=== PATIENT | female | born 1985 | race Caucasian/White ===

== ENCOUNTER 2019-11-01 11:09 | Emergency (ER) | payer SELFPAY ==
[2019-11-01 11:18] VITALS: BP 214/149; PULSE 90; RESP 20; TEMP 36.7; O2SAT 94; BMI 49.1
--- NOTE | 2019-11-01 11:35 | XRR_ITS ---
PROCEDURE INFORMATION: Exam: XR Chest, 1 View Exam date and time: 11/01/2019 12:18 PM Age: 33 years old Clinical indication: Cough and shortness of breath; Additional info: Cough/congestion TECHNIQUE: Imaging protocol: XR of the chest Views: 1 view. COMPARISON: CR Chest 1 [place] [id number] 04/14/2019 12:06 AM FINDINGS: Lungs: Unremarkable. No consolidation. Pleural space: Unremarkable. No pleural effusion. No pneumothorax. Heart/Mediastinum: Unremarkable. No cardiomegaly. Bones/joints: Unremarkable. XR/XR chest 1V portable [id number] IMPRESSION: No acute findings.
[2019-11-01 12:10] LABS: Basophils # 0.1 10^3/uL (0.0-0.1); Basophils % 1.2 %; Eosinophils # 0.3 10^3/uL (0.0-0.8); Eosinophils % 4.1 %; Hematocrit 40.7 % (37.0-47.0); Hemoglobin 12.1 g/dL (11.5-15.3); Lymphocytes # 2.6 10^3/uL (0.8-4.8); Lymphocytes % 33.1 %; Mean Corpuscular HGB Conc 29.7 g/dL (30.0-36.0); Mean Corpuscular Hemoglobin 23.3 pg (28.0-34.0); Mean Corpuscular Volume 78.4 fL (81-99); Mean Platelet Volume 11.8 fL (7.4-10.4); Monocytes # 0.6 10^3/uL (0.2-0.9); Monocytes % 7.3 %; Neutrophils # 4.2 10^3/uL (1.8-7.7); Nucleated Red Blood Cells % 0 %; Platelet Count 283 10^3/cmm (130-400); Red Blood Count 5.19 10^6/uL (4.1-5.3); Red Cell Distribution Width 15.9 % (12.1-15.1); White Blood Count 7.8 10^3/uL (4.0-10.0)
[2019-11-01 12:23] LABS: HCG, Serum Qual Negative (Negative)
[2019-11-01 12:27] LABS: Alanine Aminotransferase 13 U/L (0-33); Albumin Level 3.8 g/dL (3.5-5.2); Alkaline Phosphatase 105 IU/L (35-105); Anion Gap 16.6 (5-19); Aspartate Amino Transferase 14 U/L (0-32); Blood Urea Nitrogen 8 mg/dL (6-20); Calcium 9.7 mg/dL (8.5-10.5); Carbon Dioxide 21 mmol/L (22-29); Chloride 104 mmol/L (98-107); Creatinine Clr Calc Pharmacy 149.2619; Glomerular Filtration Rate 72.1 mL/min (90-130); Glucose 112 mg/dL (74-109); Potassium 3.6 mmol/L (3.5-5.1); Sodium 138 mmol/L (136-145); Total Bilirubin 0.2 mg/dL (0.15-1.2); Total Protein 7.8 g/dL (6.6-8.7)
== END 2019-11-01 14:24 | disposition left against medical advice (07) ==
LOC: ER 11:54
PROVIDERS: Physician Assistant; Emergency Provider Physician Assistant
DX: Z53.21 Procedure and treatment not carried out due to patient leaving prior to being seen by health care provider (principal)
CPT/HCPCS: 36415; 71045; 80053; 84703; 85025; 99281; 99282

== ENCOUNTER 2021-03-03 00:41 | Emergency (ER) | payer SELFPAY ==
[2021-03-03 01:09] VITALS: BP 145/80; PULSE 88; RESP 17; TEMP 36.6; O2SAT 98; BMI 50.2
--- NOTE | 2021-03-03 02:11 | XRR_ITS ---
PROCEDURE INFORMATION: Exam: XR Chest Exam date and time: 03/03/2021 2:12 AM Age: 35 years old Clinical indication: Chest pressure; Patient HX: Chest pain; Additional info: Cp TECHNIQUE: Imaging protocol: XR of the chest. Views: 1 view. COMPARISON: CR XR chest 1V portable [id number] 11/01/2019 12:16 PM FINDINGS: Lungs: Unremarkable. No consolidation. Pleural spaces: Unremarkable. No pleural effusion. No pneumothorax. Heart/Mediastinum: Unremarkable. No cardiomegaly. Bones/joints: Unremarkable. XR/XR chest 1V portable [id number] IMPRESSION: No acute findings.
[2021-03-03 02:21] VITALS: BP 108/88; PULSE 82; RESP 20; O2SAT 99
[2021-03-03 02:22] LABS: Basophils # 0.1 10^3/uL (0.0-0.1); Eosinophils # 0.3 10^3/uL (0.0-0.8); Eosinophils % 2.2 %; Hematocrit 42.4 % (37.0-47.0); Hemoglobin 13.7 g/dL (11.5-15.3); Lymphocytes % 31.5 %; Mean Corpuscular HGB Conc 32.3 g/dL (30.0-36.0); Mean Corpuscular Hemoglobin 26.5 pg (28.0-34.0); Mean Platelet Volume 11.9 fL (7.4-10.4); Monocytes % 7.9 %; Neutrophils # 7.14 10^3/uL (1.8-7.7); Nucleated Red Blood Cells % 0 %; Platelet Count 315 10^3/cmm (130-400); Red Blood Count 5.17 10^6/uL (4.1-5.3); Red Cell Distribution Width 15.1 % (12.1-15.1); White Blood Count 12.5 10^3/uL (4.0-10.0)
[2021-03-03 02:30] VITALS: BP 202/123; PULSE 79; RESP 21; O2SAT 98
[2021-03-03 02:45] LABS: Troponin(5th) Baseline 6 ng/L (0-10)
[2021-03-03 02:49] LABS: D Dimer 0.83 ug/mIFEU (0-0.59)
[2021-03-03 02:52] LABS: Alanine Aminotransferase 25 U/L (0-33); Albumin Level 4.3 g/dL (3.5-5.2); Alkaline Phosphatase 105 IU/L (35-105); Anion Gap 16.6 (5-19); Aspartate Amino Transferase 16 U/L (0-32); Blood Urea Nitrogen 12 mg/dL (6-20); Calcium 8.9 mg/dL (8.5-10.5); Carbon Dioxide 28 mmol/L (22-29); Chloride 99 mmol/L (98-107); Creatine Phosphokinase 34 U/L (26-192); Glomerular Filtration Rate 95.2 mL/min (90-130); Glucose 85 mg/dL (65-115); NT Pro B Type Natriuretic Pept 34 pg/mL (0-125); Osmolality Calculated 289 mOsm/kg (285-295); Potassium 3.6 mmol/L (3.5-5.1); Sodium 140 mmol/L (136-145); Total Bilirubin 0.2 mg/dL (0.15-1.2); Total Protein 7.3 g/dL (6.6-8.7)
[2021-03-03 04:00] VITALS: PULSE 78; RESP 22; O2SAT 98
--- NOTE | 2021-03-03 04:11 | ECG_ITS ---
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
[2021-03-03 04:25] VITALS: BP 136/67; PULSE 81; RESP 18; O2SAT 98
--- NOTE | 2021-03-03 04:44 | W.ED.CHESTPA ---
HPI - Chest Pain General: Chief Complaint: Chest Pain Stated Complaint: CP Time Seen by Provider: 03/03/21 03:09 History of Present Illness: HPI narrative: 35-year-old female with chest discomfort onset yesterday at 6 or 6:30 in the morning. It is a sharp pain to the right side of her chest that radiates to her neck. No cough, no fever. No shortness of breath. No pain increase with deep breathing she said it is not reproducible by palpation. The pain is gone on exam. MD complaint: chest pain Pertinent past history: other Onset (ago): hour(s) Prior episodes: Yes Onset: during rest Pain location: right chest Pain radiation: neck Severity: moderate Quality: sharp Relieving factors: nothing Exacerbating factors: nothing Context: recent immobilization Associated symptoms: Reports nausea; Deny dyspnea, fever(s) or palpitations Treatment prior to arrival: aspirin and nitroglycerin Review of Systems Const: Denies: fever(s) Eyes: Denies: change in vision ENMT: Denies: odynophagia or sinus pain Card: Denies: palpitations Resp: Denies: dyspnea GI: Reports: nausea : Denies: dysuria or hematuria Musc: Reports: neck pain; Denies: back pain Skin/Breast: Denies: rash Neuro: Denies: headache(s), dizziness or vertigo Psych: Reports: anxiety PFSH ED PFSH: Social History Smoking and tobacco status: current every day smoker Physical Exam Const: GENERAL APPEARANCE: well developed ORIENTATION/CONSCIOUSNESS: Yes oriented to person, Yes oriented to place and Yes oriented to time HENMT: COMMON NORMALS: normocephalic, external ears normal and Normal external nose present HEAD & SCALP: normocephalic FACE & SINUS: normal facial exam NOSE: Normal external nose present and No nasal discharge present EXTERNAL EAR: Yes external ears normal Eye: COMMON NORMALS: Equal, round and reactive pupils present, EOMs intact bilaterally and conjunctivae normal EYELID: eyelids normal CONJUNCTIVA: Yes conjunctivae normal PUPIL: Yes Equal, round and reactive pupils present Neck/C-Spine: GENERAL: No tracheal deviation Chest: COMMONS NORMALS: normal inspection of the chest CHEST: No tenderness Resp: COMMON NORMALS: clear to auscultation bilaterally EFFORT & INSPECTION: No tachypneic, No respiratory distress, No retractions, No uses accessory muscles and No tracheal deviation AUSCULTATION: clear to auscultation bilaterally, no rhonchi, no wheezes and lung sounds not diminished Cardio: COMMON NORMALS: regular rate and regular rhythm RATE: regular rate RHYTHM: regular rhythm HEART SOUNDS: no murmurs PERIPHERAL PULSES: radial pulses present GI: INSPECTION: No abdominal distension AUSCULTATION: No Hyperactive bowel sounds present and No Hypoactive bowel sounds present PALPATION: No Guarding due to palpation present (GI) and No Rigid due to palpation PERCUSSION: no dullness to percussion and no tympanic to percussion Neuro: SENSORIUM/ORIENTATION: Yes oriented to person, Yes oriented to place and Yes oriented to time Psych: COMMON NORMALS: mental status grossly normal Skin: COMMON NORMALS: no rashes or lesions noted GENERAL SKIN EXAM: no rashes or lesions noted Course Vital Signs: Vital signs: Vital Signs Temperature 97.9 F 03/03/21 01:09 Pulse Rate 81 03/03/21 04:25 Respiratory Rate 18 03/03/21 04:25 Blood Pressure 136/67 03/03/21 04:25 Pulse Oximetry 98 03/03/21 04:25 MDM - Chest Pain MDM Narrative: Medical decision making narrative: 35-year-old female with chest discomfort. She is nontachycardic, nonhypoxic. Her EKG is normal with a normal sinus rhythm, rate 75-80, normal axis, no acute ST changes. Intervals are normal. Troponin was 6 initially and did not elevate. Her other laboratory is benign. Her chest x-ray is negative. Lab Data: Labs: Lab Results 03/03/21 03/03/21 03/03/21 Range/Units 02:10 02:10 02:10 WBC 12.5 H (4.0-10.0) 10^3/ uL RBC 5.17 (4.1-5.3) 10^6/u L Hgb 13.7 (11.5-15.3) g/dL Hct 42.4 (37.0-47.0) % MCV 82.0 (81-99) fL MCH 26.5 L (28.0-34.0) pg MCHC 32.3 (30.0-36.0) g/dL RDW 15.1 (12.1-15.1) % Plt Count 315 (130-400) 10^3/c mm MPV 11.9 H (7.4-10.4) fL Neut % (Auto) 57.0 % Lymph % (Auto) 31.5 % Dare % (Auto) 7.9 % Eos % (Auto) 2.2 % Baso % (Auto) 1.0 % Neut # (Auto) 7.14 (1.8-7.7) 10^3/u L Lymph # (Auto) 4.0 (0.8-4.8) 10^3/u L Dare # (Auto) 1.0 H (0.2-0.9) 10^3/u L Eos # (Auto) 0.3 (0.0-0.8) 10^3/u L Baso # (Auto) 0.1 (0.0-0.1) 10^3/u L Nucleated RBC % (a uto) 0 % Nucleated RBCs # 0.0 /100WBC D-Dimer 0.83 H (0-0.59) ug/mIFE U Sodium 140 (136-145) mmol/L Potassium 3.6 (3.5-5.1) mmol/L Chloride 99 (98-107) mmol/L Carbon Dioxide 28 (22-29) mmol/L Anion Gap 16.6 (5-19) BUN 12 (6-20) mg/dL Creatinine 0.7 (0.5-0.9) mg/dL GFR Calculation 95.2 (90-130) mL/min Glucose 85 (65-115) mg/dL Calculated Osmolal ity 289 (285-295) mOsm/k g Calcium 8.9 (8.5-10.5) mg/dL Total Bilirubin 0.2 (0.15-1.2) mg/dL AST 16 (0-32) U/L ALT 25 (0-33) U/L Alkaline Phosphata se 105 (35-105) IU/L Creatine Kinase 34 (26-192) U/L Troponin T Baselin e (0-10) ng/L Troponin T 120 Min [place] (0-10) ng/L Delta Troponin T (0-10) ABS# NT-Pro-B Natriuret Pep 34 (0-125) pg/mL Total Protein 7.3 (6.6-8.7) g/dL Albumin 4.3 (3.5-5.2) g/dL Globulin 3.0 (1.3-4.6) g/dL 03/03/21 03/03/21 Range/Units 02:10 04:21 WBC (4.0-10.0) 10^3/ uL RBC (4.1-5.3) 10^6/u L Hgb (11.5-15.3) g/dL Hct (37.0-47.0) % MCV (81-99) fL MCH (28.0-34.0) pg MCHC (30.0-36.0) g/dL RDW (12.1-15.1) % Plt Count (130-400) 10^3/c mm MPV (7.4-10.4) fL Neut % (Auto) % Lymph % (Auto) % Dare % (Auto) % Eos % (Auto) % Baso % (Auto) % Neut # (Auto) (1.8-7.7) 10^3/u L Lymph # (Auto) (0.8-4.8) 10^3/u L Dare # (Auto) (0.2-0.9) 10^3/u L Eos # (Auto) (0.0-0.8) 10^3/u L Baso # (Auto) (0.0-0.1) 10^3/u L Nucleated RBC % (a uto) % Nucleated RBCs # /100WBC D-Dimer (0-0.59) ug/mIFE U Sodium (136-145) mmol/L Potassium (3.5-5.1) mmol/L Chloride (98-107) mmol/L Carbon Dioxide (22-29) mmol/L Anion Gap (5-19) BUN (6-20) mg/dL Creatinine (0.5-0.9) mg/dL GFR Calculation (90-130) mL/min Glucose (65-115) mg/dL Calculated Osmolal ity (285-295) mOsm/k g Calcium (8.5-10.5) mg/dL Total Bilirubin (0.15-1.2) mg/dL AST (0-32) U/L ALT (0-33) U/L Alkaline Phosphata se (35-105) IU/L Creatine Kinase (26-192) U/L Troponin T Baselin e 6 (0-10) ng/L Troponin T 120 Min [place] 6.00 (0-10) ng/L Delta Troponin T 0 (0-10) ABS# NT-Pro-B Natriuret Pep (0-125) pg/mL Total Protein (6.6-8.7) g/dL Albumin (3.5-5.2) g/dL Globulin (1.3-4.6) g/dL Discharge Plan Discharge Patient Disposition: Home Clinical Impression: Chest pain Qualifiers: Chest pain type: unspecified Qualified Code(s): R07.9 - Chest pain, unspecified Condition: Stable Prescriptions: New ketorolac 10 mg tablet 10 mg PO TID PRN (Reason: pain) Qty: 10 RF: 0 Discharge Orders: Discharge ED (Routine); Ordered 03/03/21 Ordered By: Jose Angel Mckeon Discharge Diet: Advance as tolerated Discharge Activity: Increase activity as tolerated Patient Instructions: Chest Pain (ED) Activity Restrictions/Additional Instructions: Return for return of or worsening chest discomfort despite treatment, shortness of breath, cough, fever, other concerning symptoms. Coding Level of Care Code ED [employer] Shortage And Damage Clerk for Chg Fwd Exam Comprehensive
[2021-03-03 04:48] LABS: Troponin 5 2HR Delta 0 ABS# (0-10)
[2021-03-03] MEDS: ketorolac 30 mg/mL INJ IVP (05:06)
[2021-03-03 05:23] VITALS: BP 141/93; PULSE 76; RESP 15; TEMP 36.6; O2SAT 98
--- NOTE | 2021-03-08 10:51 | DCPLANNER ---
internet cafe manager had message to schedule an outpatient stress test for patient. internet cafe manager faxed signed order to centralized scheduling. internet cafe manager will call for appointment information.
--- NOTE | 2021-03-09 10:58 | DCPLANNER ---
Patient has a stress test scheduled for Tuesday, March 30, 2021 at 10:00.
--- NOTE | 2021-04-26 07:01 | DCPLANNER ---
Patient had an outpatient stress test scheduled - patient did attend appointment.
== END 2021-03-03 05:23 | disposition home or self-care (01) ==
PROVIDERS: Emergency Provider Emergency Medicine
DX: R07.9 Chest pain, unspecified (principal); R11.0 Nausea; F17.200 Nicotine dependence, unspecified, uncomplicated
CPT/HCPCS: 71045; 80053; 82550; 83880; 84484; 85025; 85378; 93005; 96374; 99283; J1885

== ENCOUNTER 2021-04-17 07:10 | Outpatient (CLI) | payer SELFPAY ==
[2021-04-17 07:18] VITALS: BMI 50.3
[2021-04-17] MEDS: hyDRALAzine 20 mg/mL INJ 1 mL 10 MG IVP ×2 (09:16→09:41)
--- NOTE | 2021-04-17 10:17 | PC.NURSE ---
pt not able to complete test due to bp being too high. obtained orders for hydralizine 10 mg and if bp not under 180 give another 10mg of hydralizine. one dose given and bp not under target. another dose given and after wait time of 10 minutes and pt going to the bathroom bp spiked again to 210/110. under the advisement of dr bass waiter/waitress cabin class onyx chip terrazzo worker, pt is to return to her primary dr for bp management and to reschedule stress test after bp control
== END 2021-04-17 07:11 | disposition home or self-care (01) ==
LOC: RAD 07:12 → CDL 07:14
PROVIDERS: PCP Family Medicine; Visit Provider Emergency Medicine
DX: R07.9 Chest pain, unspecified (principal); Z53.09 Procedure and treatment not carried out because of other contraindication
CPT/HCPCS: 96374; 96376; J0360

== ENCOUNTER 2022-07-26 13:55 | Outpatient (CLI) | payer MEDICAID, SELFPAY ==
--- NOTE | 2022-07-26 | US_ITS ---
WS: [id number] RENAL ULTRASOUND HISTORY: SEVERE HYPERTENSION COMPARISON: None available. TECHNIQUE: 2-D and color Doppler imaging of the kidney submitted. Quality of this examination is compromised by body habitus. Right kidney: 12.1 cm x 4.9 cm x 4.8 cm. Normal echogenicity with no hydronephrosis or mass. Left kidney: 11.4 cm x 5.6 cm x 5.5 cm. Normal echogenicity with no hydronephrosis or mass. Aorta: Poorly visualized. Urinary Bladder: Normal distention. US/US renal BI* [id number] IMPRESSION: 1. Quality is limited by body habitus. 2. No hydronephrosis or mass identified. 3. Kidneys are normal size.
== END 2022-07-26 13:56 | disposition home or self-care (01) ==
LOC: RAD 13:55
PROVIDERS: PCP Family Medicine; Visit Provider Family Medicine
DX: I10 Essential (primary) hypertension (principal)
CPT/HCPCS: 76770